=== PATIENT | male | born 1950 | race Caucasian/White ===

== ENCOUNTER → 2017-07-11 | Outpatient (CLI) | payer MEDICARE, BC | END | disposition home or self-care (01) | LOC: RAD 12:52 | PROVIDERS: ATTEND Internal Medicine | DX: R06.02 Shortness of breath (principal) | CPT/HCPCS: 76000 ==

== ENCOUNTER → 2017-11-21 | Outpatient (CLI) | payer MEDICARE, BC | END | disposition home or self-care (01) | LOC: CFH 10:04 | PROVIDERS: ATTEND Nurse Practitioner | DX: J96.11 Chronic respiratory failure with hypoxia (principal) | CPT/HCPCS: 71250 ==

== ENCOUNTER → 2020-05-13 | Outpatient (CLI) | payer MEDICARE | END | disposition home or self-care (01) | LOC: CVU 15:10 | PROVIDERS: ATTEND Registered Nurse | DX: I08.8 Other rheumatic multiple valve diseases (principal); E11.9 Type 2 diabetes mellitus without complications; I10 Essential (primary) hypertension; J44.9 Chronic obstructive pulmonary disease, unspecified; J96.11 Chronic respiratory failure with hypoxia; Z68.42 Body mass index [BMI] 45.0-49.9, adult; Z87.891 Personal history of nicotine dependence | CPT/HCPCS: 93306 ==

== ENCOUNTER → 2020-07-06 | Outpatient (CLI) | payer MEDICARE | END | disposition home or self-care (01) | LOC: RAD 11:29 | PROVIDERS: ATTEND Registered Nurse | DX: I71.2 Thoracic aortic aneurysm, without rupture (principal); J44.9 Chronic obstructive pulmonary disease, unspecified | CPT/HCPCS: 71046 ==